=== PATIENT | male | born 1995 | race Two or more races ===

== ENCOUNTER 2025-10-13 17:48 | Emergency (ER) | payer MEDICAID, SELFPAY ==
[2025-10-13 18:31] VITALS: BP 148/93; PULSE 109; RESP 16; TEMP 37.1; O2SAT 95; BMI 41.7
--- NOTE | 2025-10-13 19:02 | EDNOTE_ITS ---
ED Animal Bite RME/HPI General Chief Complaint: Animal Bite Stated Complaint: SPIDER BITES TO [place]. HANDS Time Seen by Provider: 10/13/25 18:56 Arrival date/time: 10/13/25 17:48 This is a case of 30-year-old male with no medical history came in in the emergency room due to multiple spider bites on both fingers on both hands this morning due to some redness and some discharge this patient decided to sought consult here in the emergency room there is no discoloration there is no fever or chills Limitations: no limitations Related Data Previous Rx's ?Medication ?Instructions ?Recorded acetaminophen 500 mg tablet 1,000 mg (2 x 500 mg) PO Q ID PRN 02/02/20 (Tylenol Extra Strength) fever or pain #30 tabs albuterol sulfate 90 mcg/actuation 2 puff inhalation Q ID PRN 02/02/20 aerosol inhaler shortness of breath or wheez ing #18 grams cephalexin 500 mg capsule 500 mg PO QID #40 caps 10/13 mupirocin 2 % topical ointment 1 applic topical BID #2 2 grams 10/13/25 (Centany) Allergies Allergy/AdvReac Type Severity Reaction Status Date / Time No Known Allergies Allergy Verified 10/13/25 17:51 Review of Systems Review of Systems Systems Reviewed: All systems reviewed, normal except as documented Past Medical History Past Medical History CARDIAC: Negative Congestive Heart Failure RESPIRATORY: Positive Asthma; Negative Chronic Obstructive Pulmonary Disease (COPD) GENITOURINARY: Negative Renal Disease ENDOCRINE: Negative Diabetes Mellitus Type 1 or Diabetes Mellitus Type 2 Social History SMOKING STATUS: Never smoker ED Exam General Limitations: Present no limitations General appearance: Present alert, in no apparent distress and other (Patient is awake alert oriented not in distress nontoxic looking well-hydrated well- nourished) Head Head exam: Present atraumatic Eye Eye exam: Present normal appearance, PERRL and EOMI ENT ENT exam: Present normal exam, normal oropharynx and mucous membranes moist Neck Neck exam: Present normal inspection, full ROM and trachea midline Chest Chest inspection: Present normal inspection and symmetric chest wall rise Respiratory Respiratory exam: Present normal lung sounds bilaterally Cardiovascular Cardiovascular exam: Present regular rate, normal rhythm and normal heart sounds Abdominal Exam Abdominal exam: Present soft and normal bowel sounds Extremities Exam Extremities exam: Present normal inspection and full ROM Back Exam Back exam: Present normal inspection and full ROM Neurological Exam Neurological exam: Present alert, oriented X3, CN II-XII intact, normal gait and reflexes normal Psychiatric Psychiatric exam: Present normal affect and normal mood Skin Skin exam: Present warm, dry, intact, normal color and other (Noted multiple spider bite on both hands and all the fingers of the both hands no tenderness but with redness and clear discharge no abscess no cellulitis ROM intact neurovascular intact) Course Quality Measures none Vital Signs Vital signs: Vital Signs Temperature 98.7 F 10/13/25 18:31 Pulse Rate 109 H 10/13/25 18:31 Respiratory Rate 16 10/13/25 18:31 Blood Pressure 148/93 H 10/13/25 18:31 Pulse Oximetry (%) 95 10/13/25 18:31 Oxygen Delivery Method Room Air 10/13/25 18:31 Oxygen saturation is 95% in room air normal Animal Bite MDM Narrative MDM Narrative:: This is a case of 30-year-old male with no medical history came in in the emergency room due to multiple spider bites on both fingers on both hands this morning due to some redness and some discharge this patient decided to sought consult here in the emergency room there is no discoloration there is no fever or chills physical examination patient is awake alert oriented not in distress nontoxic looking well-hydrated well-nourished noted a multiple spider bite on all the fingers on both hands and dorsal aspect of the hands with some redness discharge no tenderness no abscess no cellulitis there is some infection but no discoloration ROM is intact neurovascular intact this point the spider bite is none poisonous and I do not think the patient is having allergic reaction patient was discharged with cephalexin and mupirocin ointment patient Tdap is up-to-date patient will follow-up with PCP in 2 days for reevaluation and for any worsening symptoms or any emergent concern return precaution in the ER is advsied Patient was discharged with comfortable condition walking with stable gait. Patient verbalized no further complains explained diagnosis and answered patient question. Patient is comfortable with the proposed management plan including the need to follow up with his/her primary care physician and any specialist if applicable Discussed patient for any urgent condition or worsening sx, He/She needed to go to emergency room immediately or call 911. Patient acknowledge the responsibility to follow up as instructed and to monitor her/his symptoms. For any persistence of the symptoms for more than 3-5 days return precaution advised. Discussed the result of the test and was given printed discharge instruction Patient data External records reviewed:: [facility] previous records Clinical information provided by:: patient Social determinants that could affect healthcare access:: none Patient has the following chronic illnesses:: None How is presenting disease/condition affected by chronic disease/condition?: no chronic disease Evaluation data The following diagnostics were reviewed and interpreted by me:: other (specify) (None) Lab and/or radiology exams considered but not ordered:: None Interpretation Summary: None Medications / Prescriptions Medications or Prescriptions considered but not ordered:: Given Medication administrations:: Given Consultations Consultation(s) initiated? (list below): No Diagnosis Differential diagnosis animal bite: other (Spider bite) Most likely diagnosis given after review of the tests above:: Infected spider bite Admission Indicated Admission indicated?: not indicated Explain why admission is indicated or not indicated:: Not indicated Admission Request Was there a request for admission?: No Admission Attestation Admission request attestation: Not indicated Disposition Plan Disposition Plan: Discharge Discharge Attestation Discharge Attestation: The patient and all family members were given an opportunity to ask questions and understood the discharge instructions. Discharge instructions specifically effects, indications for sooner follow up or return to the emergency department, and the expected course of current diagnosis. Patient condition: Stable Discharge Plan Plan Patient Disposition: HOME (Self Care) Patient condition on transfer: Stable Prescriptions/Referrals Prescriptions/Med Rec: New cephalexin 500 mg capsule 500 mg PO QID Qty: 40 0RF mupirocin [Centany] 2 % ointment 1 applic topical BID Qty: 22 0RF No Action albuterol sulfate 90 mcg/actuation HFA aerosol inhaler 2 puff IH QID PRN (Reason: shortness of breath or wheezing) Qty: 18 0RF acetaminophen [Tylenol Extra Strength] 500 mg tablet 1,000 mg PO QID PRN (Reason: fever or pain) Qty: 30 0RF Problem List Clinical Impression: Nonvenomous spider bite, Infected wound Patient/Caregiver Discharge Instructions Education Materials: ED Insect Sting/Bite, Infected, ED Spider Bite, Non- Poisonous Additional Instructions: Follow-up with your primary care physician in 2 days for reevaluation worsening symptoms or any emergent concern call 911 or go to the nearest emergency room for any redness swelling discharge from the wound pain fever chills return to the emergency room immediately or call 911 take your medication as directed finish the course of the antibiotic keep the wound clean and dry Print Language: [place]ralt[place] Stand Alone Forms: Judi Award Info., Patient Portal Info Letter PA/SENIOR WINDOWS ADMINISTRATOR Supervising Physician PA/SENIOR WINDOWS ADMINISTRATOR Supervising Physician: dr riley
== END 2025-10-13 19:16 | disposition home or self-care (01) ==
PROVIDERS: Emergency Provider Emergency Medicine; PCP Family Medicine
DX: T63.301A Toxic effect of unspecified spider venom, accidental (unintentional), initial encounter (principal); L08.9 Local infection of the skin and subcutaneous tissue, unspecified
CPT/HCPCS: 99281